=== PATIENT | male | born 1985 | race Caucasian/White ===

== ENCOUNTER → 2022-06-07 | Day surgery (SDC) | payer OTHER ==
[~2022-06-07] VITALS: Ht 180.3 cm; Wt 99.8 kg
[~2022-06-07] MED LIST: ALLOPURINOL 10100 MG PO
== END | disposition home or self-care (01) ==
LOC: FAS 11:44
DX: D12.4 Benign neoplasm of descending colon (principal); K64.8 Other hemorrhoids; K62.5 Hemorrhage of anus and rectum; J45.909 Unspecified asthma, uncomplicated; Z79.899 Other long term (current) drug therapy
CPT/HCPCS: J2250; J2704; J7120